=== PATIENT | male | born 1995 | race Caucasian/White ===

== ENCOUNTER 2019-07-16 04:29 | Emergency (ER) | payer BC, OTHER ==
[2019-07-16] MEDS ORDERED: Ondansetron 4 MG/2 ML SDV IVPUSH ONE (04:35)
[2019-07-16] MEDS ORDERED: Sodium Chloride 0.9% 2.5 ML Syringe FLUSH PRN (04:35)
[2019-07-16] MEDS ORDERED: Morphine 2 MG/ML Syringe IVPUSH ONE (04:35)
[2019-07-16] MEDS ORDERED: Sodium Chloride 0.9% 1,000 ML IV ONE (04:35)
[2019-07-16] MEDS ORDERED: Ketorolac 30 MG/ML SDV IVPUSH ONE (04:35)
[2019-07-16] MEDS ORDERED: Sodium Chloride 0.9% 10 ML Syringe FLUSH PRN (04:35)
--- NOTE | 2019-07-16 04:40 | EDM.PDOC ---
ED HPI GENERAL MEDICAL PROBLEM - General Stated Complaint: PAIN IN LOWER RT SIDE Time Seen by Provider: 07/16/19 04:30 - History of Present Illness INITIAL COMMENTS - FREE TEXT/NARRATIVE: HISTORY AND PHYSICAL: History of present illness: The patient is a 23-year-old male with no GI or history and no abdominal surgical history presents with sudden onset of right flank pain radiating to his right lower abdomen that woke him from sleep at 3:00 this morning, an hour and a half ago. The patient said he had a completely normal day yesterday and had no systemic issues but last evening before going to bed he said that he urinated and had some difficulty initiating the stream and there was some discomfort passing it but it was not burning and he noticed some blood in his urine which was new. At 3 AM he was awakened sleep with right flank pain which radiated to the right lower quadrant associated with some nausea and he went to the bathroom and had a similar episode where he had difficulty initiating the stream and that there was blood in the urine and there was discomfort with passing the urine. Patient has not had any vomiting and is in fact constipated no diarrhea and no recent fever chills chest pain or shortness of breath. He has no midline back pain and denies any recent injuries or trauma or any strenuous activities. He did not take any medications prior to coming here. He' s never had pain like this before or hematuria in the past and denies STD risks. He denies any testicular pain or swelling. He ate and drink normally yesterday and says that he does drink a lot of caffeinated products and does not hydrate very much. Review of systems: As per history of present illness and below otherwise all systems reviewed and negative. Past medical history: As per history of present illness and as reviewed below otherwise noncontributory. Surgical history: As per history of present illness and as reviewed below otherwise noncontributory. Social history: No reported history of drug or alcohol abuse. Family history: As per history of present illness and as reviewed below otherwise noncontributory. Physical exam: General: Well-developed well-nourished man who is nontoxic and vital signs are noted by me. He related into the ED HEENT: Atraumatic, normocephalic, negative for conjunctival pallor or scleral icterus, mucous membranes moist, throat clear, neck supple, nontender, trachea midline. Lungs: Clear to auscultation, breath sounds equal bilaterally, chest nontender. Heart: S1S2, regular rate and rhythm no overt murmurs Abdomen: Soft, nondistended, nontender. Bowel sounds are hypoactive and is some tympany on percussion but no rebound or guarding on palpation. On palpation of the right side of the abdomen I cannot reproduce the pain he is experiencing. Negative for masses or hepatosplenomegaly. Negative for costovertebral tenderness. Pelvis: Stable nontender. Genitourinary: Deferred. Rectal: Deferred. Extremities: Atraumatic, negative for cords or calf pain. Neurovascular unremarkable. Neuro: Awake, alert, oriented. Cranial nerves II through XII unremarkable. Cerebellum unremarkable. Motor and sensory unremarkable throughout. Exam nonfocal. Diagnostics: CBC CMP UA with micro-urine culture CT scan of the abdomen and pelvis Therapeutics: IV fluids Zofran Toradol morphine, Flomax Cipro urine strainers Patient was made aware of his slight elevation in bilirubin and need to follow that up in the clinic. Impression: Right ureterolithiasis Definitive disposition and diagnosis as appropriate pending reevaluation and review of above. R flank radiating to R lower abdomen Pain Score (Numeric/FACES): 9 - Related Data Allergies Allergy/AdvReac Type Severity Reaction Status Date / Time No Known Allergies Allergy Verified 07/16/19 04:43 Home Meds: Home Meds . [No Known Home Meds] 07/16/19 [History] ED ROS GENERAL - Review of Systems Review Of Systems: ROS reveals no pertinent complaints other than HPI. ED EXAM, GENERAL - Physical Exam Exam: See Below (see Dictation) Course - Vital Signs Last Recorded V/S: Last Vital Signs Temp 36.4 C 07/16/19 04:40 Pulse 67 07/16/19 05:45 Resp 16 07/16/19 05:45 BP 144/84 H 07/16/19 04:40 Pulse Ox 95 07/16/19 05:45 - Orders/Labs/Meds Orders: Active Orders 24 hr Category Date Time Status Communication Order [RC] STAT Care 07/16/19 06:02 Ordered CULTURE URINE [RM] Stat Lab 07/16/19 04:40 Received Ciprofloxacin [Ciprofloxacin HCl] Med 07/16/19 06:01 Once 500 mg PO ONETIME ONE Sodium Chloride 0.9% [Saline Flush] Med 07/16/19 04:35 Active 10 ml FLUSH ASDIRECTED PRN Sodium Chloride 0.9% [Saline Flush] Med 07/16/19 04:35 Active 2.5 ml FLUSH ASDIRECTED PRN Tamsulosin [Flomax] Med 07/16/19 06:01 Once 0.4 mg PO ONETIME ONE Saline Lock Insert [OM.PC] Stat Oth 07/16/19 04:34 Ordered Medication Orders Ciprofloxacin (Ciprofloxacin Hcl) 500 mg PO ONETIME ONE Stop: 07/16/19 06:02 Sodium Chloride (Saline Flush) 10 ml FLUSH ASDIRECTED PRN PRN Reason: Keep Vein Open Last Admin: 07/16/19 04:46 Dose: 10 ml Sodium Chloride (Saline Flush) 2.5 ml FLUSH ASDIRECTED PRN PRN Reason: Keep Vein Open Last Admin: 07/16/19 04:46 Dose: 2.5 ml Tamsulosin HCl (Flomax) 0.4 mg PO ONETIME ONE Stop: 07/16/19 06:02 Labs: Laboratory Tests 07/16/19 07/16/19 07/16/19 Range/Units 04:30 04:30 04:40 WBC 8.94 (4.0-11.0) K/uL RBC 4.95 (4.50-5.90) M/uL Hgb 15.4 (13.0-17.0) g/dL Hct 44.0 (38.0-50.0) % MCV 88.9 (80.0-98.0) fL MCH 31.1 (27.0-32.0) pg MCHC 35.0 (31.0-37.0) g/dL RDW Std Deviation 40.3 (28.0-62.0) fl RDW Coeff of Sal 13 (11.0-15.0) % Plt Count 277 (150-400) K/uL MPV 10.10 (7.40-12.00) fL Neut % (Auto) 48.1 (48.0-80.0) % Lymph % (Auto) 41.1 H (16.0-40.0) % Lucas % (Auto) 7.4 (0.0-15.0) % Eos % (Auto) 3.0 (0.0-7.0) % Baso % (Auto) 0.4 (0.0-1.5) % Neut # (Auto) 4.3 (1.4-5.7) K/uL Lymph # (Auto) 3.7 H (0.6-2.4) K/uL Lucas # (Auto) 0.7 (0.0-0.8) K/uL Eos # (Auto) 0.3 (0.0-0.7) K/uL Baso # (Auto) 0.0 (0.0-0.1) K/uL Nucleated RBC % 0.0 /100WBC Nucleated RBCs # 0 K/uL Sodium 141 (136-148) mmol/L Potassium 3.4 L (3.5-5.1) mmol/L Chloride 104 (98-107) mmol/L Carbon Dioxide 25.0 (21.0-32.0) mmol/L BUN 19 H (7.0-18.0) mg/dL Creatinine 1.4 H (0.8-1.3) mg/dL Est Cr Clr Drug Dosing 85.91 mL/min Estimated GFR (MDRD) > 60.0 ml/min Glucose 109 H (74-106) mg/dL Calcium 9.6 (8.5-10.1) mg/dL Total Bilirubin 2.2 H (0.2-1.0) mg/dL AST 142 H (15-37) IU/L ALT 54 (14-63) IU/L Alkaline Phosphatase 74 (46-116) U/L Total Protein 7.5 (6.4-8.2) g/dL Albumin 4.2 (3.4-5.0) g/dL Globulin 3.3 (2.6-4.0) g/dL Albumin/Globulin Ratio 1.3 (0.9-1.6) Urine Color YELLOW Urine Appearance CLOUDY Urine pH 5.0 (5.0-8.0) Ur Specific [place] >= 1.030 (1.001-1.035) Urine Protein 100 H (NEGATIVE) mg/dL Urine Glucose (UA) NEGATIVE (NEGATIVE) mg/dL Urine Ketones TRACE H (NEGATIVE) mg/dL Urine Occult Blood LARGE H (NEGATIVE) Urine Nitrite POSITIVE H (NEGATIVE) Urine Bilirubin MODERATE H (NEGATIVE) Urine Ictotest Urine Urobilinogen 1.0 (<2.0) EU/dL Ur Leukocyte Esterase NEGATIVE (NEGATIVE) Urine RBC 80-90 (0-2/HPF) Urine WBC 0-2 (0-5/HPF) Ur Epithelial Cells OCCASIONAL (NONE-FEW) Urine Bacteria FEW (NEGATIVE) Urine Mucus LIGHT (NONE-MOD) Urinalysis Comment Meds: Medications Generic Name Dose Route Start Last Admin Trade Name Paty PRN Reason Stop Dose Admin Ciprofloxacin 500 mg 07/16/19 06:01 Ciprofloxacin Hcl PO 07/16/19 06:02 ONETIME ONE Sodium Chloride 10 ml 07/16/19 04:35 07/16/19 04:46 Saline Flush FLUSH 10 ml ASDIRECTED PRN Administration Keep Vein Open Sodium Chloride 2.5 ml 07/16/19 04:35 07/16/19 04:46 Saline Flush FLUSH 2.5 ml ASDIRECTED PRN Administration Keep Vein Open Tamsulosin HCl 0.4 mg 07/16/19 06:01 Flomax PO 07/16/19 06:02 ONETIME ONE Discontinued Medications Generic Name Dose Route Start Last Admin Trade Name Paty PRN Reason Stop Dose Admin Sodium Chloride 1,000 mls @ 999 mls/hr 07/16/19 04:35 07/16/19 04:43 Normal Saline IV 07/16/19 05:35 999 mls/hr STAT ONE Administration Ketorolac Tromethamine 30 mg 07/16/19 04:35 07/16/19 04:44 Toradol IVPUSH 07/16/19 04:36 30 mg ONETIME ONE Administration Morphine Sulfate 4 mg 07/16/19 04:35 07/16/19 04:44 Morphine IVPUSH 07/16/19 04:36 4 mg ONETIME ONE Administration Ondansetron HCl 4 mg 07/16/19 04:35 07/16/19 04:44 Zofran IVPUSH 07/16/19 04:36 4 mg ONETIME ONE Administration Departure - Departure Time of Disposition: 06:03 Disposition: Home, Self-Care 01 Condition: Good Clinical Impression: Ureterolithiasis - Discharge Information Referrals: PCP,None [Primary Care Provider] - Additional Instructions: The following information is given to patients seen in the emergency department who are being discharged to home. This information is to outline your options for follow-up care. We provide all patients seen in our emergency department with a follow-up referral. The need for follow-up, as well as the timing and circumstances, are variable depending upon the specifics of your emergency department visit. If you don't have a primary care physician on staff, we will provide you with a referral. We always advise you to contact your personal physician following an emergency department visit to inform them of the circumstance of the visit and for follow-up with them and/or the need for any referrals to a consulting specialist. The emergency department will also refer you to a specialist when appropriate. This referral assures that you have the opportunity for followup care with a specialist. All of these measure are taken in an effort to provide you with optimal care, which includes your followup. Under all circumstances we always encourage you to contact your private physician who remains a resource for coordinating your care. When calling for followup care, please make the office aware that this follow-up is from your recent emergency room visit. If for any reason you are refused follow-up, please contact the [facility] emergency department at and ask to speak to the emergency department charge nurse. [facility] [place] [address] Push more hydration and try to reduce her caffeine intake and increase your water juice and fluid intake.. Please call and schedule follow-up appointment with our urologist for follow-up care using resources given to above and return to ER as needed and as discussed. Strain all urine looking for the small kidney stone and take medications as prescribed, Flomax to help facilitate the stone passing, Zofran for nausea or vomiting, [place] for pain management, ciprofloxacin which is an antibiotic. - My Orders Last 24 Hours: My Active Orders 07/16/19 04:34 Saline Lock Insert [OM.PC] Stat 07/16/19 04:35 Sodium Chloride 0.9% [Saline Flush] 10 ml FLUSH ASDIRECTED PRN Sodium Chloride 0.9% [Saline Flush] 2.5 ml FLUSH ASDIRECTED PRN 07/16/19 04:40 CULTURE URINE [RM] Stat 07/16/19 06:01 Ciprofloxacin [Ciprofloxacin HCl] 500 mg PO ONETIME ONE Tamsulosin [Flomax] 0.4 mg PO ONETIME ONE 07/16/19 06:02 Communication Order [RC] STAT - Assessment/Plan Last 24 Hours: My Active Orders 07/16/19 04:34 Saline Lock Insert [OM.PC] Stat 07/16/19 04:35 Sodium Chloride 0.9% [Saline Flush] 10 ml FLUSH ASDIRECTED PRN Sodium Chloride 0.9% [Saline Flush] 2.5 ml FLUSH ASDIRECTED PRN 07/16/19 04:40 CULTURE URINE [RM] Stat 07/16/19 06:01 Ciprofloxacin [Ciprofloxacin HCl] 500 mg PO ONETIME ONE Tamsulosin [Flomax] 0.4 mg PO ONETIME ONE 07/16/19 06:02 Communication Order [RC] STAT
[2019-07-16 04:59] LABS: BLOOD UREA NITROGEN,BUN 19 mg/dL (7.0-18.0); CHLORIDE,CL 104 mmol/L (98-107); GLUCOSE RANDOM 109 mg/dL (74-106); POTASSIUM,K 3.4 mmol/L (3.5-5.1); SODIUM,NA 141 mmol/L (136-148)
[2019-07-16] MEDS ORDERED: Tamsulosin 0.4 MG Cap.ER PO ONE (06:01)
[2019-07-16] MEDS ORDERED: Ciprofloxacin 500 MG Tab PO ONE (06:01)
--- NOTE | 2019-07-16 06:01 | CT ---
INDICATION: Pt w/rt flank pain. CT ABDOMEN AND PELVIS WITHOUT CONTRAST TECHNIQUE: Multidetector CT imaging was performed through the abdomen and pelvis without intravenous or oral contrast. Coronal and sagittal reconstructions were generated. COMPARISON: None. FINDINGS: There is a 2-3mm stone in the distal right ureter at the UVJ or ureteral orifice producing mild ureteral dilation and mild right hydronephrosis. No other urinary tract stones are noted. Included portions of the lower chest show the lung bases to be clear. No abnormalities are demonstrated in the unenhanced liver, spleen, gallbladder, pancreas, stomach, and adrenals. Bowel loops are of normal caliber and demonstrate no wall thickening. The appendix is normal. No free fluid or free air is identified. The abdominal aorta appears normal. No abnormally enlarged lymph nodes are seen. The urinary bladder, prostate, and seminal vesicles are within normal limits. Visualized bones show no significant findings. IMPRESSION: 2-3mm stone at the right UVJ producing mild right hydroureteronephrosis. TIFFANIE PHAM MD [employer] Dictated by: Du Pham MD @ 07/16/2019 05:59:49 (Electronically Signed)
== END 2019-07-16 06:28 | disposition home or self-care (01) ==
LOC: MW.ED 04:29
DX: N13.2 Hydronephrosis with renal and ureteral calculous obstruction (principal)
CPT/HCPCS: 36415; 74176; 80053; 81001; 85025; 87086; 96361; 96374; 96375; 99284; A9270; J1885; J2270; J2405; J7040